=== PATIENT | female | born 1985 | race Caucasian/White ===

== ENCOUNTER 2017-10-23 18:33 | Emergency (ER) | payer OTHER ==
[~2017-10-23] VITALS: Ht 172.7 cm; Wt 72.6 kg
[2017-10-23] MEDS ORDERED: ULTRAM 50MG TAB50 MG PO (18:57)
[2017-10-23] MEDS ORDERED: KEFLEX500 M1 PO (18:57)
== END 2017-10-23 19:15 | disposition home or self-care (01) ==
LOC: ER 18:33
DX: M70.32 Other bursitis of elbow, left elbow (principal); L03.114 Cellulitis of left upper limb; Y93.89 Activity, other specified

== ENCOUNTER 2017-10-28 10:03 | Emergency (ER) | payer OTHER ==
[~2017-10-28] VITALS: Ht 172.7 cm; Wt 72.6 kg
[~2017-10-28 10:03] MED LIST: KEFLEX500 M1 PO; ULTRAM 50MG TAB50 MG PO
[2017-10-28] MEDS ORDERED: KEFLEX500 M1 PO (10:14)
== END 2017-10-28 10:46 | disposition home or self-care (01) ==
LOC: ER 10:03
DX: K04.7 Periapical abscess without sinus (principal)